=== PATIENT | female | born 1980 | race Asian ===

== ENCOUNTER 2021-07-26 05:27 | Day surgery (SDC) | payer BC ==
[2021-07-22 16:12] VITALS: BMI 21.0
[2021-07-26 10:59] VITALS: TEMP 97.5
[2021-07-26 11:27] VITALS: BP 109/96; PULSE 74
== END 2021-07-26 11:46 | disposition home or self-care (01) ==
LOC: JASU-ENDO 05:27
PROVIDERS: ATTEND Internal Medicine Gastroenterology
PROC: 0DJD8ZZ Inspection of Lower Intestinal Tract, Via Natural or Artificial Opening Endoscopic (ICD-10-PCS; principal; 2021-07-26 11:00)
DX: Z12.11 Encounter for screening for malignant neoplasm of colon (principal); K59.00 Constipation, unspecified; Z86.010 Personal history of colon polyps
CPT/HCPCS: 81025